=== PATIENT | male | born 1960 | race Caucasian/White ===

== ENCOUNTER → 2020-08-05 | Outpatient (CLI) | payer MEDICARE, OTHER ==
[~2020-08-05] MED LIST: DIAZEPAM10 MG PO; ELIQUIS 2.5 MG2.5 MG PO; GABAPENTIN800 MG PO; HYDROCODON-ACE1 EAC6 PO; LOPRESSOR 25 MG25 MG PO; PERCOCET 7.5-31 EACH PO; SEROQUEL50 MG PO
[2020-08-05 12:27] LABS: HEMOGLOBIN 14.2 gm/dl (14.0-17.5); RED BLOOD COUNT 4.75 M/UL (4.20-5.50); WHITE BLOOD COUNT 7.7 K/UL (4.5-11.0)
[2020-08-05 13:05] LABS: BUN/CREATININE RATIO 19 (0-10)
== END ==
LOC: OPSV2 11:30 → EDSTATUS 11:30 → OPSV2 11:42
PROVIDERS: Orthopaedic Surgery
DX: Z01.818 Encounter for other preprocedural examination (principal); S72.001A Fracture of unspecified part of neck of right femur, initial encounter for closed fracture
CPT/HCPCS: 36415; 80048; 81001; 85025; 87081; 93005

== ENCOUNTER → 2020-08-15 | Outpatient (CLI) | payer MEDICARE, OTHER ==
[2020-08-15 13:07] LABS: BUN/CREATININE RATIO 21 (0-10)
== END ==
LOC: LAB 12:02
PROVIDERS: Orthopaedic Surgery
DX: Z01.812 Encounter for preprocedural laboratory examination (principal)
CPT/HCPCS: 36415; 80048; 86850; 86900; 86901

== ENCOUNTER 2020-08-16 07:00 | Inpatient (IN) | payer MEDICARE, OTHER ==
[~2020-08-16] VITALS: Ht 180.3 cm; Wt 84.8 kg
[~2020-08-16 07:00] MED LIST changes: -DIAZEPAM10 MG PO; -ELIQUIS 2.5 MG2.5 MG PO; -HYDROCODON-ACE1 EAC6 PO; -LOPRESSOR 25 MG25 MG PO; -PERCOCET 7.5-31 EACH PO; -SEROQUEL50 MG PO
[2020-08-16] MEDS ORDERED: HYDROCODON-ACE1 EAC6 PO (08:05)
[2020-08-16] MEDS ORDERED: PERCOCET 7.5-31 EACH PO (17:34)
[2020-08-16 17:46] LABS: HEMOGLOBIN 13.3 gm/dl (14.0-17.5)
[2020-08-17 04:24] LABS: RED BLOOD COUNT 4.29 M/UL (4.20-5.50); WHITE BLOOD COUNT 12.8 K/UL (4.5-11.0)
[2020-08-17 04:46] LABS: BUN/CREATININE RATIO 25 (0-10)
[2020-08-17] MEDS ORDERED: DIAZEPAM10 MG PO (08:06)
[2020-08-17] MEDS ORDERED: SEROQUEL50 MG PO (12:21)
[2020-08-18 06:51] LABS: HEMOGLOBIN 11.5 gm/dl (14.0-17.5); RED BLOOD COUNT 3.9 M/UL (4.20-5.50); WHITE BLOOD COUNT 13.3 K/UL (4.5-11.0)
[2020-08-18 07:13] LABS: BUN/CREATININE RATIO 27 (0-10)
[2020-08-19 03:49] LABS: HEMOGLOBIN 11.1 gm/dl (14.0-17.5); RED BLOOD COUNT 3.72 M/UL (4.20-5.50); WHITE BLOOD COUNT 12.6 K/UL (4.5-11.0)
[2020-08-19 04:11] LABS: BUN/CREATININE RATIO 24 (0-10)
[2020-08-19] MEDS ORDERED: ELIQUIS 2.5 MG2.5 MG PO (11:34)
[2020-08-19] MEDS ORDERED: LOPRESSOR 25 MG25 MG PO (11:34)
--- NOTE | 2020-08-19 17:38 | NUR ---
REMOVED PATIENTS UNABOOTS TO REAPPLY NEW DRESSINGS AND PATIENT REFUSED TO HAVE NEW UNABOOTS REAPPLYED. HE WAS ADVIZED AGAGILLEST REFUSING THE UNABOOT BY THE NURSE AND WAS TOLD THE PROVIDER SAID IT WOULD BE AGAINST HER MEDICAL ADVICE TO NOT REAPPLY. PATIENT STATES "THAT'S FINE", AND CONTINUED TO REFUSE.
== END 2020-08-19 19:21 | disposition home or self-care (01) | DRG 522 ==
LOC: OR 07:00 → M/S 18:40 → OR 18:41 → M/S 18:41 → OR 08-18 11:15 → M/S 08-19 19:21
PROVIDERS: ADMIT Orthopaedic Surgery
PROC: 0QP604Z Removal of Internal Fixation Device from Right Upper Femur, Open Approach (ICD-10-PCS; 2020-08-16)
PROC: 0QP204Z Removal of Internal Fixation Device from Right Pelvic Bone, Open Approach (ICD-10-PCS; 2020-08-16)
PROC: 0SR90JA Replacement of Right Hip Joint with Synthetic Substitute, Uncemented, Open Approach (ICD-10-PCS; principal; 2020-08-16 10:45)
DX: S72.001K Fracture of unspecified part of neck of right femur, subsequent encounter for closed fracture with nonunion (principal); M87.251 Osteonecrosis due to previous trauma, right femur; T84.194A Other mechanical complication of internal fixation device of right femur, initial encounter; W13.2XXD Fall from, out of or through roof, subsequent encounter; Y83.1 Surgical operation with implant of artificial internal device as the cause of abnormal reaction of the patient, or of later complication, without mention of misadventure at the time of the procedure; G89.29 Other chronic pain; Z20.822 Contact with and (suspected) exposure to COVID-19; F17.200 Nicotine dependence, unspecified, uncomplicated; F19.10 Other psychoactive substance abuse, uncomplicated; J44.9 Chronic obstructive pulmonary disease, unspecified; D72.828 Other elevated white blood cell count; M19.90 Unspecified osteoarthritis, unspecified site; Z96.651 Presence of right artificial knee joint; Z79.899 Other long term (current) drug therapy; Z86.19 Personal history of other infectious and parasitic diseases; Z94.9 Transplanted organ and tissue status, unspecified; Z89.022 Acquired absence of left finger(s); Z89.021 Acquired absence of right finger(s)
CPT/HCPCS: 36415; 71045; 72170; 76000; 80048; 85014; 85018; 85025; 86850; 86900; 86901; 93005; 94640; 94664; 94760; 97110-GP-CQ; 97116-GP-CQ; 97161; 97166; 97535; C1713; C1776; J0171; J0690; J1100; J1170; J1644; J1885; J2001; J2250; J2370; J2704; J2795; J3010; J3370; J7030; J7050; J7120; P9045; U0002

== ENCOUNTER → 2021-07-18 | Outpatient (CLI) | payer MEDICARE, OTHER ==
[~2021-07-18] MED LIST changes: +DIAZEPAM10 MG PO; +ELIQUIS 2.5 MG2.5 MG PO; +HYDROCODON-ACE1 EAC6 PO; +LOPRESSOR 25 MG25 MG PO; +PERCOCET 7.5-31 EACH PO; +SEROQUEL50 MG PO
== END ==
LOC: KOH-I 08:36
DX: Q75.4 Mandibulofacial dysostosis (principal)
CPT/HCPCS: 73700